=== PATIENT | male | born 1990 | race Caucasian/White ===

== ENCOUNTER 2016-11-27 15:02 | Inpatient (IN) | payer OTHER ==
[2016-11-27 16:58] VITALS: BMI 24.3
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
[2016-11-27] MEDS ORDERED: METHADONE HCL 10 MG TABLET (FOR DETOX USE ONLY) PO ONE ×2 (17:11→23:00)
[2016-11-27] MEDS ORDERED: P-EPHED 60MG/TRIPROLIDI 2.5MG TABLET PO PRN (17:11)
[2016-11-27] MEDS ORDERED: MAGNESIUM CITRATE 300 ML BOTTLE PO PRN (17:11)
[2016-11-27] MEDS ORDERED: guaiFENesin/D-METHORPHAN HB 10 ML UNIT-DOSE CUPS PO PRN (17:11)
[2016-11-27] MEDS ORDERED: LOPERAMIDE HCL 2 MG CAPSULE PO PRN (17:11)
[2016-11-27] MEDS: diazePAM 5 MG TABLET PO PRN ×2 (18:18→22:37)
[2016-11-27] MEDS: MENTHOL/PHENOL 1 EACH UD MM PRN ×2 (18:18→22:39)
[2016-11-27] MEDS: THIAMINE HCL 100 MG TABLET (FP) PO SCH (22:35)
[2016-11-27] MEDS: diphenhydrAMINE HCL 50 MG CAPSULE PO PRN (22:37)
[2016-11-28] MEDS: diazePAM 5 MG TABLET PO PRN ×4 (05:57→22:35)
[2016-11-28] MEDS: MENTHOL/PHENOL 1 EACH UD MM PRN ×3 (05:58→22:40)
[2016-11-28] MEDS ORDERED: METHADONE HCL 10 MG TABLET (FOR DETOX USE ONLY) PO ONE ×2 (10:00→14:00)
[2016-11-28 10:11] LABS: MCH 28.8 pg (25.7-33.7); MEAN CELL VOLUME 84.5 fl (80-96); MEAN PLT VOLUME 10.1 fl (7.5-11.1); PLATELET COUNT 185 K/MM3 (134-434); RDW 13.5 % (11.9-15.9); WHITE BLOOD COUNT 7.1 K/mm3 (4.0-10.0)
[2016-11-28 10:30] LABS: ALBUMIN 3.7 g/dl (3.4-5.0); ALK PHOS 105 U/L (45-117); ANION GAP 9 (8-16); BILIRUBIN,TOTAL 0.5 mg/dL (0.2-1.0); CALCIUM 9.5 mg/dL (8.5-10.1); CO2 29 mmol/L (21-32); CREATININE 0.8 mg/dL (0.7-1.3); GLUCOSE,RANDOM 99 mg/dL (74-106); SGOT/AST 43 U/L (15-37); SGPT/ALT 57 U/L (12-78); TOT PROT 6.8 g/dl (6.4-8.2)
[2016-11-28] MEDS: PRENATAL VITAMINS W/ FOLIC ACID TABLET (FP) PO SCH (10:30)
[2016-11-28 11:15] LABS: SICKLE CELL SCREEN NEGATIVE (NEGATIVE)
--- NOTE | 2016-11-28 14:10 | PN ---
BHS COWS - Scale Resting Pulse: 1= [place] 81-100 Sweatin= Chills/Flushing Restless Observation: 3= Extraneous Movement Pupil Size: 0= Normal to Room Light Bone or Joint Aches: 2= Severe Diffuse Aches Runny Nose/ Eye Tearin= Nasal Congestion GI Upset > 30mins: 2= Nausea/Diarrhea Tremor Observation of Outstretched Hands: 2= Slight Tremor Visible Yawning Observation: 0= None Anxiety or Irritability: 2=Irritable/Anxious Goose Flesh Skin: 0=Smooth Skin COWS Score: 14 BHS Progress Note (SOAP) Subjective: Tremor, anxious, sweating, restlessness Objective: 11/28/16 14:09 Last Vital Signs Temp Pulse Resp BP Pulse Ox 96.8 F L 63 18 117/80 11/28/16 13:28 11/28/16 13:28 11/28/16 13:28 11/28/16 13:28 Laboratory Tests 11/28/16 11/28/16 11/28/16 07:50 07:50 07:50 WBC 7.1 RBC 4.39 Hgb 12.6 Hct 37.1 MCV 84.5 MCHC 34.0 RDW 13.5 Plt Count 185 MPV 10.1 Sickle Cell Screen Negative Sodium 139 Potassium 4.2 Chloride 101 Carbon Dioxide 29 Anion Gap 9 BUN 13 Creatinine 0.8 Creat Clearance w eGFR > 60 Random Glucose 99 Calcium 9.5 Total Bilirubin 0.5 AST 43 H ALT 57 Alkaline Phosphatase 105 Total Protein 6.8 Albumin 3.7 RPR Titer Nonreactive Labs noted Assessment: 11/28/16 14:09 Withdrawal symptoms Plan: Continue detox
[2016-11-28] MEDS: diphenhydrAMINE HCL 50 MG CAPSULE PO PRN (22:36)
[2016-11-28] MEDS: MAG HYDROX/AL HYDROX/SIMETH 30 ML UNIT-DOSE CUP PO PRN (22:37)
[2016-11-28] MEDS: IBUPROFEN 400 MG TABLET (FP) PO PRN (22:37)
[2016-11-28] MEDS: THIAMINE HCL 100 MG TABLET (FP) PO SCH (22:58)
[2016-11-29] MEDS: ACETAMINOPHEN 325 MG TABLET (FP) PO PRN ×3 (01:18→17:15)
[2016-11-29] MEDS: MENTHOL/PHENOL 1 EACH UD MM PRN ×2 (05:39→10:15)
[2016-11-29] MEDS: diazePAM 5 MG TABLET PO PRN ×4 (05:39→22:12)
[2016-11-29] MEDS ORDERED: CYCLOBENZAPRINE HCL 10 MG TABLET (FP) PO ONE (09:12)
[2016-11-29] MEDS ORDERED: ONDANSETRON *ODT* 4 MG TABLET SL PRN (09:13)
[2016-11-29] MEDS ORDERED: ONDANSETRON *ODT* 4 MG TABLET SL ONE (09:13)
[2016-11-29] MEDS ORDERED: METHADONE HCL 5 MG TABLET (FOR DETOX USE ONLY) PO ONE (10:00)
[2016-11-29] MEDS: PRENATAL VITAMINS W/ FOLIC ACID TABLET (FP) PO SCH (10:09)
[2016-11-29] MEDS: cloNIDine HCL 0.1 MG TABLET PO SCH ×2 (10:09→22:13)
--- NOTE | 2016-11-29 10:09 | PN ---
BHS COWS - Scale Resting Pulse: 1= [place] 81-100 Sweatin=Flushed/Facial Moisture Restless Observation: 3= Extraneous Movement Pupil Size: 1= Pupils >than Normal Bone or Joint Aches: 2= Severe Diffuse Aches Runny Nose/ Eye Tearin= Runny Nose/Eyes GI Upset > 30mins: 2= Nausea/Diarrhea Tremor Observation of Outstretched Hands: 2= Slight Tremor Visible Yawning Observation: 1= 1-2x During Session Anxiety or Irritability: 2=Irritable/Anxious Goose Flesh Skin: 0=Smooth Skin COWS Score: 18 BHS Progress Note (SOAP) Subjective: anxiety,tremors,sweating,interrupted sleep,restless Objective: 11/29/16 10:09 Last Vital Signs Temp Pulse Resp BP Pulse Ox 98.6 F 94 H 20 111/73 11/29/16 10:04 11/29/16 10:04 11/29/16 10:04 11/29/16 10:04 Laboratory Tests 11/28/16 11/28/16 11/28/16 07:50 07:50 07:50 WBC 7.1 RBC 4.39 Hgb 12.6 Hct 37.1 MCV 84.5 MCHC 34.0 RDW 13.5 Plt Count 185 MPV 10.1 Sickle Cell Screen Negative Sodium 139 Potassium 4.2 Chloride 101 Carbon Dioxide 29 Anion Gap 9 BUN 13 Creatinine 0.8 Creat Clearance w eGFR > 60 Random Glucose 99 Calcium 9.5 Total Bilirubin 0.5 AST 43 H ALT 57 Alkaline Phosphatase 105 Total Protein 6.8 Albumin 3.7 RPR Titer Nonreactive labs noted Assessment: 11/29/16 10:09 withdrawal sx. Plan: continue detox
[2016-11-29] MEDS: CYCLOBENZAPRINE HCL 10 MG TABLET (FP) PO SCH ×2 (13:37→22:12)
[2016-11-29] MEDS: MAG HYDROX/AL HYDROX/SIMETH 30 ML UNIT-DOSE CUP PO PRN (13:38)
--- NOTE | 2016-11-29 16:22 | EKG ---
Test Reason : Blood Pressure : / mmHG Vent. Rate : 088 BPM Atrial Rate : 088 BPM P-R Int : 174 ms QRS Dur : 096 ms QT Int : 338 ms P-R-T Axes : 059 063 036 degrees QTc Int : 408 ms NORMAL SINUS RHYTHM POSSIBLE LEFT ATRIAL ENLARGEMENT SEPTAL INFARCT , AGE UNDETERMINED ABNORMAL ECG NO PREVIOUS ECGS AVAILABLE Confirmed by OMAR BANGURA MD ([id number]) on 11/29/2016 4:22:24 PM Referred By: Confirmed By:OMAR BANGURA MD
[2016-11-29] MEDS: MAGNESIUM HYDROX 2400MG/30ML ORAL SUSPENSION 30 ML CUP PO PRN (17:20)
[2016-11-29] MEDS: THIAMINE HCL 100 MG TABLET (FP) PO SCH (22:13)
[2016-11-29] MEDS: ZOLPIDEM TARTRATE 10 MG TABLET (PARK CARE ONLY) PO PRN (22:13)
[2016-11-29 22:47] LABS: URINE APPEARANCE CLEAR; URINE BILIRUBIN NEGATIVE (NEGATIVE); URINE BLOOD NEGATIVE (NEGATIVE); URINE COLOR YELLOW; URINE GLUCOSE (UA) NEGATIVE (NEGATIVE); URINE KETONE NEGATIVE (NEGATIVE); URINE LEUK ESTERASE NEGATIVE (NEGATIVE); URINE NITRITE NEGATIVE (NEGATIVE); URINE PROTEIN NEGATIVE (NEGATIVE); URINE UROBILINOGEN NEGATIVE E.U./dl (0.2-1.0)
[2016-11-30] MEDS: diazePAM 5 MG TABLET PO PRN ×3 (02:03→15:27)
[2016-11-30] MEDS: CYCLOBENZAPRINE HCL 10 MG TABLET (FP) PO SCH ×3 (05:46→22:14)
[2016-11-30] MEDS: MENTHOL/PHENOL 1 EACH UD MM PRN ×3 (05:48→15:26)
[2016-11-30] MEDS: ACETAMINOPHEN 325 MG TABLET (FP) PO PRN ×2 (06:18→15:28)
[2016-11-30] MEDS ORDERED: METHADONE HCL 5 MG TABLET (FOR DETOX USE ONLY) PO ONE (10:00)
[2016-11-30] MEDS: cloNIDine HCL 0.1 MG TABLET PO SCH ×2 (10:13→22:14)
[2016-11-30] MEDS: PRENATAL VITAMINS W/ FOLIC ACID TABLET (FP) PO SCH (10:13)
--- NOTE | 2016-11-30 10:54 | PN ---
S Progress Note (SOAP) Subjective: ANXIETY,IRRITABILITY,ASWEATS/CHILLS,DIARRHEA, MUSCLE CRAMPS. Objective: 11/30/16 10:54 Vital Signs Temperature 96.0 F L 11/30/16 09:40 Pulse Rate 79 11/30/16 09:40 Respiratory Rate 19 11/30/16 09:40 Blood Pressure 98/62 11/30/16 09:40 O2 Sat by Pulse Oximetry (%) Laboratory Last Values WBC 7.1 K/mm3 (4.0-10.0) 11/28/16 07:50 RBC 4.39 M/mm3 (4.00-5.60) 11/28/16 07:50 Hgb 12.6 GM/dL (11.7-16.9) 11/28/16 07:50 Hct 37.1 % (35.4-49) 11/28/16 07:50 MCV 84.5 fl (80-96) 11/28/16 07:50 MCHC 34.0 g/dl (32.0-35.9) 11/28/16 07:50 RDW 13.5 % (11.9-15.9) 11/28/16 07:50 Plt Count 185 K/MM3 (134-434) 11/28/16 07:50 MPV 10.1 fl (7.5-11.1) 11/28/16 07:50 Sickle Cell Screen Negative (NEGATIVE) 11/28/16 07:50 Sodium 139 mmol/L (136-145) 11/28/16 07:50 Potassium 4.2 mmol/L (3.5-5.1) 11/28/16 07:50 Chloride 101 mmol/L (98-107) 11/28/16 07:50 Carbon Dioxide 29 mmol/L (21-32) 11/28/16 07:50 Anion Gap 9 (8-16) 11/28/16 07:50 BUN 13 mg/dL (7-18) 11/28/16 07:50 Creatinine 0.8 mg/dL (0.7-1.3) 11/28/16 07:50 Creat Clearance w eGFR > 60 (>60) 11/28/16 07:50 Random Glucose 99 mg/dL (74-106) 11/28/16 07:50 Calcium 9.5 mg/dL (8.5-10.1) 11/28/16 07:50 Total Bilirubin 0.5 mg/dL (0.2-1.0) 11/28/16 07:50 AST 43 U/L (15-37) H 11/28/16 07:50 ALT 57 U/L (12-78) 11/28/16 07:50 Alkaline Phosphatase 105 U/L (45-117) 11/28/16 07:50 Total Protein 6.8 g/dl (6.4-8.2) 11/28/16 07:50 Albumin 3.7 g/dl (3.4-5.0) 11/28/16 07:50 Urine Color Yellow 11/29/16 18:30 Urine Appearance Clear 11/29/16 18:30 Urine pH 5.0 (5.0-8.0) 11/29/16 18:30 Ur Specific [place] 1.020 (1.001-1.035) 11/29/16 18:30 Urine Protein Negative (NEGATIVE) 11/29/16 18:30 Urine Glucose (UA) Negative (NEGATIVE) 11/29/16 18:30 Urine Ketones Negative (NEGATIVE) 11/29/16 18:30 Urine Blood Negative (NEGATIVE) 11/29/16 18:30 Urine Nitrite Negative (NEGATIVE) 11/29/16 18:30 Urine Bilirubin Negative (NEGATIVE) 11/29/16 18:30 Urine Urobilinogen Negative E.U./dl (0.2-1.0) 11/29/16 18:30 Ur Leukocyte Esterase Negative (NEGATIVE) 11/29/16 18:30 RPR Titer Nonreactive (NONREACTIVE) 11/28/16 07:50 Assessment: 11/30/16 10:54 WITHDRAWAL SX Plan: CONTINUE DETOX INCREASE PO FLUIDS.
[2016-11-30] MEDS: hydrOXYzine PAMOATE 50 MG CAPSULE (FP) PO PRN (17:38)
[2016-11-30] MEDS: IBUPROFEN 400 MG TABLET (FP) PO PRN (17:39)
[2016-11-30] MEDS: ZOLPIDEM TARTRATE 10 MG TABLET (PARK CARE ONLY) PO PRN (22:15)
[2016-11-30] MEDS: MAGNESIUM HYDROX 2400MG/30ML ORAL SUSPENSION 30 ML CUP PO PRN (22:16)
[2016-11-30] MEDS: THIAMINE HCL 100 MG TABLET (FP) PO SCH (22:36)
[2016-12-01] MEDS: MENTHOL/PHENOL 1 EACH UD MM PRN (00:36)
[2016-12-01] MEDS: hydrOXYzine PAMOATE 50 MG CAPSULE (FP) PO PRN ×2 (01:43→06:21)
[2016-12-01] MEDS: CYCLOBENZAPRINE HCL 10 MG TABLET (FP) PO SCH ×4 (06:12→22:21)
[2016-12-01] MEDS ORDERED: METHADONE HCL 10 MG TABLET (FOR DETOX USE ONLY) PO ONE (10:00)
[2016-12-01] MEDS: PRENATAL VITAMINS W/ FOLIC ACID TABLET (FP) PO SCH (10:22)
[2016-12-01] MEDS: cloNIDine HCL 0.1 MG TABLET PO SCH ×2 (10:22→22:21)
--- NOTE | 2016-12-01 11:34 | PN ---
BHS Progress Note (SOAP) Subjective: ANXIETY,NAUSEA,VOMITING,SWEATS/CHILLS Objective: 12/01/16 11:34 Vital Signs Temperature 95.8 F L 12/01/16 09:58 Pulse Rate 108 H 12/01/16 09:58 Respiratory Rate 2 L 12/01/16 09:58 Blood Pressure 122/75 12/01/16 09:58 O2 Sat by Pulse Oximetry (%) Assessment: 12/01/16 11:34 WITHDRAWAL SX Plan: CONTINUE DETOX
[2016-12-01] MEDS: ZOLPIDEM TARTRATE 10 MG TABLET (PARK CARE ONLY) PO PRN (22:20)
[2016-12-01] MEDS: THIAMINE HCL 100 MG TABLET (FP) PO SCH (22:21)
[2016-12-02] MEDS: CYCLOBENZAPRINE HCL 10 MG TABLET (FP) PO SCH (05:57)
[2016-12-02] MEDS ORDERED: METHADONE HCL 5 MG TABLET (FOR DETOX USE ONLY) PO ONE (06:00)
[2016-12-02 06:28] VITALS: BP 122/77; PULSE 102; TEMP 97.5
--- NOTE | 2016-12-02 12:29 | DS ---
[facility] Detox Discharge Summary Admission Date: 11/27/16 Discharge Date: 12/02/16 - History Present History: Opioid Dependence Additional Comments: DETOX COMPLETED.ALERT O X 3. NAD. Pertinent Past History: UNREMARKABLE - Physical Exam Results Vital Signs: Vital Signs Temperature 97.5 F L 12/02/16 06:28 Pulse Rate 102 H 12/02/16 06:28 Respiratory Rate 18 12/02/16 06:28 Blood Pressure 122/77 12/02/16 06:28 O2 Sat by Pulse Oximetry (%) Pertinent Admission Physical Exam Findings: WITHDRAWAL SX - Treatment Hospital Course: Detox Protocol Followed, Detoxed Safely, Responded well, Discharged Condition Good - Medication Discharge Medications: Ambulatory Orders NK [No Known Home Medication] 11/27/16 - Diagnosis (1) Opioid dependence with withdrawal Status: Acute - AMA Did Patient Leave Against Medical Advice: No
== END 2016-12-02 09:31 | disposition home or self-care (01) | DRG 773 ==
LOC: YASAS 15:02 → Y3N 17:18
PROVIDERS: ADMIT Internal Medicine; ATTEND Internal Medicine
PROC: HZ2ZZZZ Detoxification Services for Substance Abuse Treatment (ICD-10-PCS; principal; 2016-12-02)
DX: F11.23 Opioid dependence with withdrawal (principal)
CPT/HCPCS: 36415; 80053; 81003; 85027; 85660; 86593; 93005; 93010

== ENCOUNTER 2017-06-19 20:02 | Inpatient (IN) | payer OTHER ==
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
[2017-06-19 20:45] VITALS: BMI 21.8
[2017-06-19] MEDS ORDERED: METHADONE HCL 10 MG TABLET (FOR DETOX USE ONLY) PO ONE ×2 (20:50→23:00)
[2017-06-19] MEDS ORDERED: MAGNESIUM HYDROX 2400MG/30ML ORAL SUSPENSION 30 ML CUP PO PRN (20:50)
[2017-06-19] MEDS ORDERED: MENTHOL/PHENOL 1 EACH UD MM PRN (20:50)
[2017-06-19] MEDS ORDERED: diphenhydrAMINE HCL 50 MG CAPSULE PO PRN (20:50)
[2017-06-19] MEDS ORDERED: MAGNESIUM CITRATE 300 ML BOTTLE PO PRN (20:50)
[2017-06-19] MEDS ORDERED: P-EPHED 60MG/TRIPROLIDI 2.5MG TABLET PO PRN (20:50)
[2017-06-19] MEDS ORDERED: LOPERAMIDE HCL 2 MG CAPSULE PO PRN (20:50)
[2017-06-19] MEDS ORDERED: MAG HYDROX/AL HYDROX/SIMETH 30 ML UNIT-DOSE CUP PO PRN (20:50)
[2017-06-19] MEDS ORDERED: ACETAMINOPHEN 325 MG TABLET (FP) PO PRN (20:50)
[2017-06-19] MEDS ORDERED: hydrOXYzine PAMOATE 25 MG CAPSULE (FP) PO PRN (20:50)
[2017-06-19] MEDS ORDERED: guaiFENesin/D-METHORPHAN HB 10 ML UNIT-DOSE CUPS PO PRN (20:50)
[2017-06-19] MEDS ORDERED: IBUPROFEN 400 MG TABLET (FP) PO PRN (20:50)
[2017-06-19] MEDS: diazePAM 5 MG TABLET PO PRN (21:57)
[2017-06-19] MEDS: THIAMINE HCL 100 MG TABLET (FP) PO SCH (21:58)
[2017-06-19] MEDS: cloNIDine HCL 0.1 MG TABLET PO SCH (22:03)
[2017-06-20] MEDS: CYCLOBENZAPRINE HCL 10 MG TABLET (FP) PO PRN ×3 (06:05→22:18)
[2017-06-20] MEDS: diazePAM 5 MG TABLET PO PRN ×4 (06:05→20:58)
[2017-06-20 09:36] LABS: MCH 29.8 pg (25.7-33.7); MCHC 33.1 g/dl (32.0-35.9); MEAN CELL VOLUME 89.9 fl (80-96); MEAN PLT VOLUME 10.7 fl (7.5-11.1); PLATELET COUNT 222 K/MM3 (134-434); RDW 13.7 % (11.9-15.9); WHITE BLOOD COUNT 6.1 K/mm3 (4.0-10.0)
--- NOTE | 2017-06-20 09:42 | CONSULT ---
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 Substance Abuse History: Reports heroin since 26 ,10 bags daily IV,cocaine since 26 yo,$150-200,Marijuana since 18 yo,$60 daily. Medical History: Significant for weight loss. Psychiatric History: No psychiatric history,but reports anxiety,sleeping difficulties mostly while on withdrawal. Physical/Sexual Abuse/Trauma History: denies Mental Status Exam - Mental Status Exam Alert and Oriented to: Time, Place, Person Cognitive Function: Grossly Intact Patient Appearance: Unkempt Mood: Anxious Affect: Mood Congruent, Labile Patient Behavior: Cooperative Speech Pattern: Clear Thought Process: Goal Oriented Thought Disorder: Not Present Hallucinations: Denies Suicidal Ideation: Denies Homicidal Ideation: Denies Insight/Judgement: Fair Sleep: Fair Appetite: Fair Muscle strength/Tone: Normal Gait/Station: Normal Psychiatric Findings - Problem List ([place] 1, 2,3) (1) Cannabis dependence Current Visit: Yes Status: Chronic (2) Weight loss Current Visit: Yes Status: Chronic (3) Opioid dependence Current Visit: Yes Status: Chronic (4) Cocaine dependence Current Visit: Yes Status: Chronic (5) Substance induced mood disorder Current Visit: Yes Status: Chronic - Initial Treatment Plan Initial Treatment Plan: Ambien 10 mg po hs prn for insomnia,Vistaril 50 mg po q 6 hrs for anxiety. Will monitor progress.
[2017-06-20] MEDS ORDERED: METHADONE HCL 10 MG TABLET (FOR DETOX USE ONLY) PO ONE (10:00)
[2017-06-20] MEDS: PRENATAL VITAMINS W/ FOLIC ACID TABLET (FP) PO SCH (10:14)
[2017-06-20] MEDS: cloNIDine HCL 0.1 MG TABLET PO SCH ×2 (10:14→22:18)
[2017-06-20 10:15] LABS: ALBUMIN 3.5 g/dl (3.4-5.0); ALK PHOS 67 U/L (45-117); ANION GAP 9 (8-16); BILIRUBIN,TOTAL 0.5 mg/dL (0.2-1.0); CALCIUM 9.2 mg/dL (8.5-10.1); CO2 31 mmol/L (21-32); CREATININE 1.4 mg/dL (0.7-1.3); GLUCOSE,RANDOM 93 mg/dL (74-106); SGOT/AST 6 U/L (15-37); SGPT/ALT 13 U/L (12-78); TOT PROT 6.8 g/dl (6.4-8.2)
[2017-06-20 11:47] LABS: HIV 1 & 2 AB NEGATIVE; HIV 1 AGp24 NEGATIVE
--- NOTE | 2017-06-20 17:12 | PN ---
BHS COWS - Scale Resting Pulse: 0= [place] 80 or Below Sweatin=Flushed/Facial Moisture Restless Observation: 1= Difficult to Sit Still Pupil Size: 0= Normal to Room Light Bone or Joint Aches: 2= Severe Diffuse Aches Runny Nose/ Eye Tearin= Nasal Congestion GI Upset > 30mins: 1= Stomach Cramp Tremor Observation of Outstretched Hands: 1= Tremor [place], Not Seen Yawning Observation: 1= 1-2x During Session Anxiety or Irritability: 2=Irritable/Anxious Goose Flesh Skin: 3=Piloerection COWS Score: 14 BHS Progress Note (SOAP) Subjective: Interrupted sleep, Body Aches, Fatigue, Sweating. Objective: PT. A & O X 3. NO ACUTE DISTRESS. 06/20/17 17:09 Vital Signs Temperature 97.7 F 06/20/17 09:40 Pulse Rate 74 06/20/17 13:19 Respiratory Rate 18 06/20/17 13:19 Blood Pressure 101/71 06/20/17 13:19 O2 Sat by Pulse Oximetry (%) Laboratory Tests 06/20/17 06/20/17 06/20/17 05:30 05:30 05:30 WBC 6.1 RBC 4.14 Hgb 12.3 Hct 37.2 MCV 89.9 MCH 29.8 MCHC 33.1 RDW 13.7 Plt Count 222 MPV 10.7 Sodium 143 Potassium 4.7 Chloride 103 Carbon Dioxide 31 Anion Gap 9 BUN 18 D Creatinine 1.4 H D Creat Clearance w eGFR > 60 Random Glucose 93 Calcium 9.2 Total Bilirubin 0.5 AST 6 L D ALT 13 D Alkaline Phosphatase 67 D Total Protein 6.8 Albumin 3.5 RPR Titer Nonreactive HIV 1&2 Antibody Screen HIV P24 Antigen 06/20/17 05:30 WBC RBC Hgb Hct MCV MCH MCHC RDW Plt Count MPV Sodium Potassium Chloride Carbon Dioxide Anion Gap BUN Creatinine Creat Clearance w eGFR Random Glucose Calcium Total Bilirubin AST ALT Alkaline Phosphatase Total Protein Albumin RPR Titer HIV 1&2 Antibody Screen Negative HIV P24 Antigen Negative LABS NOTED. UA RESULTS PENDING. 06/20/17 17:11 Assessment: 06/20/17 17:10 WITHDRAWAL SYMPTOMS. Plan: CONTINUE DETOX. INCREASE PO FLUID INTAKE.
[2017-06-20 18:40] LABS: URINE APPEARANCE SLCLOUDY; URINE BILIRUBIN NEGATIVE (NEGATIVE); URINE BLOOD NEGATIVE (NEGATIVE); URINE COLOR YELLOW; URINE GLUCOSE (UA) NEGATIVE (NEGATIVE); URINE KETONE NEGATIVE (NEGATIVE); URINE LEUK ESTERASE NEGATIVE (NEGATIVE); URINE NITRITE NEGATIVE (NEGATIVE); URINE PROTEIN NEGATIVE (NEGATIVE); URINE UROBILINOGEN NEGATIVE mg/dL (0.2-1.0)
--- NOTE | 2017-06-20 22:16 | EKG ---
Test Reason : Blood Pressure : / mmHG Vent. Rate : 054 BPM Atrial Rate : 054 BPM P-R Int : 140 ms QRS Dur : 080 ms QT Int : 376 ms P-R-T Axes : 064 073 038 degrees QTc Int : 356 ms SINUS BRADYCARDIA WITH SINUS ARRHYTHMIA OTHERWISE NORMAL ECG WHEN COMPARED WITH ECG OF 27-NOV-2016 18:12, VENT. RATE HAS DECREASED BY 34 BPM T WAVE VARIATION Confirmed by OMAR BANGURA MD ([id number]) on 06/20/2017 10:16:31 PM Referred By: Confirmed By:OMAR BANGURA MD
[2017-06-20] MEDS: ZOLPIDEM TARTRATE 10 MG TABLET (PARK CARE ONLY) PO PRN (22:18)
[2017-06-20] MEDS: THIAMINE HCL 100 MG TABLET (FP) PO SCH (22:18)
[2017-06-21] MEDS: diazePAM 5 MG TABLET PO PRN ×4 (05:53→22:13)
[2017-06-21] MEDS: CYCLOBENZAPRINE HCL 10 MG TABLET (FP) PO PRN ×2 (05:54→10:23)
[2017-06-21] MEDS ORDERED: METHADONE HCL 5 MG TABLET (FOR DETOX USE ONLY) PO ONE (10:00)
[2017-06-21] MEDS: cloNIDine HCL 0.1 MG TABLET PO SCH ×2 (10:21→22:14)
[2017-06-21] MEDS: PRENATAL VITAMINS W/ FOLIC ACID TABLET (FP) PO SCH (10:21)
--- NOTE | 2017-06-21 11:38 | PN ---
BHS COWS - Scale Resting Pulse: 1= [place] 81-100 Sweatin= Chills/Flushing Restless Observation: 1= Difficult to Sit Still Pupil Size: 0= Normal to Room Light Bone or Joint Aches: 2= Severe Diffuse Aches Runny Nose/ Eye Tearin= Runny Nose/Eyes GI Upset > 30mins: 1= Stomach Cramp Tremor Observation of Outstretched Hands: 1= Tremor [place], Not Seen Yawning Observation: 2= >3x During Session Anxiety or Irritability: 2=Irritable/Anxious Goose Flesh Skin: 0=Smooth Skin COWS Score: 13 BHS Progress Note (SOAP) Subjective: Interrupted sleep, Body aches, Fatigue, Stomach Cramping. Objective: PT. A & O X 2 (DISORIENTED ABOUT DAY / DATE). PT. OBSERVED AMBULATING ON UNIT. NO ACUTE DISTRESS. 06/21/17 11:39 Vital Signs Temperature 97.5 F L 06/21/17 09:10 Pulse Rate 81 06/21/17 09:10 Respiratory Rate 18 06/21/17 09:10 Blood Pressure 104/65 06/21/17 09:10 O2 Sat by Pulse Oximetry (%) Laboratory Tests 06/20/17 06/20/17 06/20/17 05:30 05:30 05:30 WBC 6.1 RBC 4.14 Hgb 12.3 Hct 37.2 MCV 89.9 MCH 29.8 MCHC 33.1 RDW 13.7 Plt Count 222 MPV 10.7 Sodium 143 Potassium 4.7 Chloride 103 Carbon Dioxide 31 Anion Gap 9 BUN 18 D Creatinine 1.4 H D Creat Clearance w eGFR > 60 Random Glucose 93 Calcium 9.2 Total Bilirubin 0.5 AST 6 L D ALT 13 D Alkaline Phosphatase 67 D Total Protein 6.8 Albumin 3.5 Urine Color Urine Appearance Urine pH Ur Specific [place] Urine Protein Urine Glucose (UA) Urine Ketones Urine Blood Urine Nitrite Urine Bilirubin Urine Urobilinogen Ur Leukocyte Esterase RPR Titer Nonreactive HIV 1&2 Antibody Screen HIV P24 Antigen 06/20/17 06/20/17 05:30 13:19 WBC RBC Hgb Hct MCV MCH MCHC RDW Plt Count MPV Sodium Potassium Chloride Carbon Dioxide Anion Gap BUN Creatinine Creat Clearance w eGFR Random Glucose Calcium Total Bilirubin AST ALT Alkaline Phosphatase Total Protein Albumin Urine Color Yellow Urine Appearance Slcloudy Urine pH 6.0 Ur Specific [place] 1.020 Urine Protein Negative Urine Glucose (UA) Negative Urine Ketones Negative Urine Blood Negative Urine Nitrite Negative Urine Bilirubin Negative Urine Urobilinogen Negative Ur Leukocyte Esterase Negative RPR Titer HIV 1&2 Antibody Screen Negative HIV P24 Antigen Negative LABS NOTED. Assessment: 06/21/17 11:40 WITHDRAWAL SYMPTOMS. Plan: CONTINUE DETOX. INCREASE DAILY PO FLUID INTAKE.
[2017-06-21] MEDS: THIAMINE HCL 100 MG TABLET (FP) PO SCH (22:14)
[2017-06-21] MEDS: ZOLPIDEM TARTRATE 10 MG TABLET (PARK CARE ONLY) PO PRN (22:14)
[2017-06-22] MEDS ORDERED: METHADONE HCL 5 MG TABLET (FOR DETOX USE ONLY) PO ONE (10:00)
[2017-06-22] MEDS: diazePAM 5 MG TABLET PO PRN ×2 (10:22→17:28)
[2017-06-22] MEDS: PRENATAL VITAMINS W/ FOLIC ACID TABLET (FP) PO SCH (10:22)
[2017-06-22] MEDS: cloNIDine HCL 0.1 MG TABLET PO SCH ×2 (10:22→22:29)
[2017-06-22] MEDS: CYCLOBENZAPRINE HCL 10 MG TABLET (FP) PO PRN ×3 (10:23→22:32)
--- NOTE | 2017-06-22 11:52 | PN ---
BHS COWS - Scale Resting Pulse: 1= [place] 81-100 Sweatin= Chills/Flushing Restless Observation: 3= Extraneous Movement Pupil Size: 0= Normal to Room Light Bone or Joint Aches: 4=Acute Joint/Muscle Pain Runny Nose/ Eye Tearin= Nasal Congestion GI Upset > 30mins: 1= Stomach Cramp Tremor Observation of Outstretched Hands: 2= Slight Tremor Visible Yawning Observation: 1= 1-2x During Session Anxiety or Irritability: 1=Feels Anxious/Irritable Goose Flesh Skin: 0=Smooth Skin COWS Score: 15 BHS Progress Note (SOAP) Subjective: ANXIETY,SWEATS,FATIGUE, INTERMITTENT SLEEP. Objective: 06/22/17 11:51 Vital Signs Temperature 97.2 F L 06/22/17 09:44 Pulse Rate 91 H 06/22/17 09:44 Respiratory Rate 18 06/22/17 09:44 Blood Pressure 106/67 06/22/17 09:44 O2 Sat by Pulse Oximetry (%) Laboratory Last Values WBC 6.1 K/mm3 (4.0-10.0) 06/20/17 05:30 RBC 4.14 M/mm3 (4.00-5.60) 06/20/17 05:30 Hgb 12.3 GM/dL (11.7-16.9) 06/20/17 05:30 Hct 37.2 % (35.4-49) 06/20/17 05:30 MCV 89.9 fl (80-96) 06/20/17 05:30 MCH 29.8 pg (25.7-33.7) 06/20/17 05:30 MCHC 33.1 g/dl (32.0-35.9) 06/20/17 05:30 RDW 13.7 % (11.9-15.9) 06/20/17 05:30 Plt Count 222 K/MM3 (134-434) 06/20/17 05:30 MPV 10.7 fl (7.5-11.1) 06/20/17 05:30 Sodium 143 mmol/L (136-145) 06/20/17 05:30 Potassium 4.7 mmol/L (3.5-5.1) 06/20/17 05:30 Chloride 103 mmol/L (98-107) 06/20/17 05:30 Carbon Dioxide 31 mmol/L (21-32) 06/20/17 05:30 Anion Gap 9 (8-16) 06/20/17 05:30 BUN 18 mg/dL (7-18) D 06/20/17 05:30 Creatinine 1.4 mg/dL (0.7-1.3) H D 06/20/17 05:30 Creat Clearance w eGFR > 60 (>60) 06/20/17 05:30 Random Glucose 93 mg/dL (74-106) 06/20/17 05:30 Calcium 9.2 mg/dL (8.5-10.1) 06/20/17 05:30 Total Bilirubin 0.5 mg/dL (0.2-1.0) 06/20/17 05:30 AST 6 U/L (15-37) L D 06/20/17 05:30 ALT 13 U/L (12-78) D 06/20/17 05:30 Alkaline Phosphatase 67 U/L (45-117) D 06/20/17 05:30 Total Protein 6.8 g/dl (6.4-8.2) 06/20/17 05:30 Albumin 3.5 g/dl (3.4-5.0) 06/20/17 05:30 Urine Color Yellow 06/20/17 13:19 Urine Appearance Slcloudy 06/20/17 13:19 Urine pH 6.0 (5.0-8.0) 06/20/17 13:19 Ur Specific [place] 1.020 (1.005-1.025) 06/20/17 13:19 Urine Protein Negative (NEGATIVE) 06/20/17 13:19 Urine Glucose (UA) Negative (NEGATIVE) 06/20/17 13:19 Urine Ketones Negative (NEGATIVE) 06/20/17 13:19 Urine Blood Negative (NEGATIVE) 06/20/17 13:19 Urine Nitrite Negative (NEGATIVE) 06/20/17 13:19 Urine Bilirubin Negative (NEGATIVE) 06/20/17 13:19 Urine Urobilinogen Negative mg/dL (0.2-1.0) 06/20/17 13:19 Ur Leukocyte Esterase Negative (NEGATIVE) 06/20/17 13:19 RPR Titer Nonreactive (NONREACTIVE) 06/20/17 05:30 HIV 1&2 Antibody Screen Negative 06/20/17 05:30 HIV P24 Antigen Negative 06/20/17 05:30 Assessment: 06/22/17 11:51 WITHDRAWAL SX Plan: CONTINUE DETOX
[2017-06-22] MEDS: THIAMINE HCL 100 MG TABLET (FP) PO SCH (22:29)
[2017-06-22] MEDS: ZOLPIDEM TARTRATE 10 MG TABLET (PARK CARE ONLY) PO PRN (22:29)
[2017-06-23] MEDS ORDERED: METHADONE HCL 10 MG TABLET (FOR DETOX USE ONLY) PO ONE (10:00)
[2017-06-23] MEDS: PRENATAL VITAMINS W/ FOLIC ACID TABLET (FP) PO SCH (10:23)
[2017-06-23] MEDS: cloNIDine HCL 0.1 MG TABLET PO SCH ×3 (10:24→23:59)
--- NOTE | 2017-06-23 12:26 | PN ---
BHS Progress Note (SOAP) Subjective: Tremors, Chills, Sweating, H/A, Interrupted Sleep, Body Aches. Objective: PT. A & O X 2 (DISORIENTED ABOUT DAY / DATE). PT. OBSERVED AMBULATING ON UNIT. NO ACUTE DISTRESS. 06/23/17 12:24 Vital Signs Temperature 98.2 F 06/23/17 09:46 Pulse Rate 100 H 06/23/17 09:46 Respiratory Rate 18 06/23/17 09:46 Blood Pressure 110/69 06/23/17 09:46 O2 Sat by Pulse Oximetry (%) Laboratory Tests 06/20/17 06/20/17 06/20/17 05:30 05:30 05:30 WBC 6.1 RBC 4.14 Hgb 12.3 Hct 37.2 MCV 89.9 MCH 29.8 MCHC 33.1 RDW 13.7 Plt Count 222 MPV 10.7 Sodium 143 Potassium 4.7 Chloride 103 Carbon Dioxide 31 Anion Gap 9 BUN 18 D Creatinine 1.4 H D Creat Clearance w eGFR > 60 Random Glucose 93 Calcium 9.2 Total Bilirubin 0.5 AST 6 L D ALT 13 D Alkaline Phosphatase 67 D Total Protein 6.8 Albumin 3.5 Urine Color Urine Appearance Urine pH Ur Specific [place] Urine Protein Urine Glucose (UA) Urine Ketones Urine Blood Urine Nitrite Urine Bilirubin Urine Urobilinogen Ur Leukocyte Esterase RPR Titer Nonreactive HIV 1&2 Antibody Screen HIV P24 Antigen 06/20/17 06/20/17 05:30 13:19 WBC RBC Hgb Hct MCV MCH MCHC RDW Plt Count MPV Sodium Potassium Chloride Carbon Dioxide Anion Gap BUN Creatinine Creat Clearance w eGFR Random Glucose Calcium Total Bilirubin AST ALT Alkaline Phosphatase Total Protein Albumin Urine Color Yellow Urine Appearance Slcloudy Urine pH 6.0 Ur Specific [place] 1.020 Urine Protein Negative Urine Glucose (UA) Negative Urine Ketones Negative Urine Blood Negative Urine Nitrite Negative Urine Bilirubin Negative Urine Urobilinogen Negative Ur Leukocyte Esterase Negative RPR Titer HIV 1&2 Antibody Screen Negative HIV P24 Antigen Negative LABS NOTED. Assessment: 06/23/17 12:25 WITHDRAWAL SYMPTOMS. Plan: CONTINUE DETOX. INCREASE PO FLUID INTAKE.
[2017-06-23 22:23] VITALS: BP 111/70; PULSE 81; TEMP 96.4
[2017-06-23] MEDS: THIAMINE HCL 100 MG TABLET (FP) PO SCH (23:34)
[2017-06-24] MEDS: THIAMINE HCL 100 MG TABLET (FP) PO SCH
[2017-06-24] MEDS ORDERED: METHADONE HCL 5 MG TABLET (FOR DETOX USE ONLY) PO ONE ×2 (06:00→09:00)
[2017-06-24] MEDS: CYCLOBENZAPRINE HCL 10 MG TABLET (FP) PO PRN (09:21)
[2017-06-24] MEDS: cloNIDine HCL 0.1 MG TABLET PO SCH (09:24)
--- NOTE | 2017-06-24 16:48 | DS ---
[facility] Detox Discharge Summary Admission Date: 06/19/17 Discharge Date: 06/24/17 - History Present History: Cannabis Dependence, Cocaine Dependence, Opioid Dependence Additional Comments: PATIENT GOING TO [facility] ([place] FOR FOLLOW-UP AFTERCARE. PATIENT WAS DISCHARGED FROM UNIT IN STABLE MEDICAL CONDITION. Pertinent Past History: Anxiety, Depression, Insomnia. - Physical Exam Results Vital Signs: Vital Signs Temperature 96.4 F L 06/23/17 22:22 Pulse Rate 81 06/23/17 22:22 Respiratory Rate 18 06/24/17 03:30 Blood Pressure 111/70 06/23/17 22:22 O2 Sat by Pulse Oximetry (%) Pertinent Admission Physical Exam Findings: WITHDRAWAL SYMPTOMS. Laboratory Tests 06/20/17 06/20/17 06/20/17 05:30 05:30 05:30 WBC 6.1 RBC 4.14 Hgb 12.3 Hct 37.2 MCV 89.9 MCH 29.8 MCHC 33.1 RDW 13.7 Plt Count 222 MPV 10.7 Sodium 143 Potassium 4.7 Chloride 103 Carbon Dioxide 31 Anion Gap 9 BUN 18 D Creatinine 1.4 H D Creat Clearance w eGFR > 60 Random Glucose 93 Calcium 9.2 Total Bilirubin 0.5 AST 6 L D ALT 13 D Alkaline Phosphatase 67 D Total Protein 6.8 Albumin 3.5 Urine Color Urine Appearance Urine pH Ur Specific [place] Urine Protein Urine Glucose (UA) Urine Ketones Urine Blood Urine Nitrite Urine Bilirubin Urine Urobilinogen Ur Leukocyte Esterase RPR Titer Nonreactive HIV 1&2 Antibody Screen HIV P24 Antigen 06/20/17 06/20/17 05:30 13:19 WBC RBC Hgb Hct MCV MCH MCHC RDW Plt Count MPV Sodium Potassium Chloride Carbon Dioxide Anion Gap BUN Creatinine Creat Clearance w eGFR Random Glucose Calcium Total Bilirubin AST ALT Alkaline Phosphatase Total Protein Albumin Urine Color Yellow Urine Appearance Slcloudy Urine pH 6.0 Ur Specific [place] 1.020 Urine Protein Negative Urine Glucose (UA) Negative Urine Ketones Negative Urine Blood Negative Urine Nitrite Negative Urine Bilirubin Negative Urine Urobilinogen Negative Ur Leukocyte Esterase Negative RPR Titer HIV 1&2 Antibody Screen Negative HIV P24 Antigen Negative LABS NOTED. - Treatment Hospital Course: Detox Protocol Followed, Detoxed Safely, Responded well, Discharged Condition Good, Rehab Referral Accepted Patient has Accepted a Rehab Referral to: [facility] ([place], [place] ) - Medication Discharge Medications: Ambulatory Orders NK [No Known Home Medication] 11/27/16 - Diagnosis (1) Anxiety and depression Status: Acute (2) Cocaine dependence with withdrawal Status: Acute (3) Opioid dependence with withdrawal Status: Acute (4) Cannabis dependence Status: Chronic (5) Substance induced mood disorder Status: Chronic (6) Weight loss Status: Chronic - AMA Did Patient Leave Against Medical Advice: No
== END 2017-06-24 09:32 | disposition home or self-care (01) | DRG 773 ==
LOC: YASAS 20:02 → Y3N 20:52
PROVIDERS: ADMIT Internal Medicine Addiction Medicine; ATTEND Internal Medicine Addiction Medicine
PROC: HZ2ZZZZ Detoxification Services for Substance Abuse Treatment (ICD-10-PCS; principal; 2017-06-19)
DX: F11.23 Opioid dependence with withdrawal (principal); F14.20 Cocaine dependence, uncomplicated; F12.20 Cannabis dependence, uncomplicated; F19.24 Other psychoactive substance dependence with psychoactive substance-induced mood disorder; F41.8 Other specified anxiety disorders; Z87.898 Personal history of other specified conditions
CPT/HCPCS: 36415; 80053; 81003; 85027; 86593; 87389; 93005; 93010

== ENCOUNTER 2017-06-25 13:44 | Observation (INO) | payer OTHER ==
[2017-06-25] MEDS ORDERED: SODIUM CHLORIDE 1,000 ML IV STA ×3 (14:16→18:17)
--- NOTE | 2017-06-25 14:16 | PDOC ---
History of Present Illness - General History Source: Patient Exam Limitations: No Limitations - History of Present Illness Initial Comments: 06/25/17 15:07 The patient is a 27 year old male, with no significant past medical history, who presents to the emergency room complaining of headache, nausea, vomiting, and chills. The patient felt normal this morning when he woke up. Around 10am, he injected heroin into the left arm. He notes that the headache, nausea, and vomiting started around 12:00pm, approximately 3 hours ago. His last episode of vomiting occurred in the waiting room. He notes that his right hand is swollen around the third knuckle, and denies any trauma to the hand or recent injury to the hand. He states that he doesn't inject into the hand and is unsure where the swelling came from. He reports that he has chronic lower back pain that is exacerbated by bending down and does not want to lay down secondary to the pain at this time. Denies chest pain, SOB. Denies lightheadedness, dizziness. Allergies: none reported Social Hx: IV drug use, marijuana use. <Joselin Shirley - Last Filed: 06/25/17 18:56> - General History Source: Patient Exam Limitations: No Limitations <Randi Mejias - Last Filed: 06/27/17 13:01> - General Chief Complaint: Pain Stated Complaint: SORE THROAT, BACK PAIN Time Seen by Provider: 06/25/17 14:12 Past History <Joselin Shirlye - Last Filed: 06/25/17 18:56> - Past Medical History Other medical history: NONE - Psycho/Social/Smoking Cessation Hx Anxiety: No Suicidal Ideation: No Smoking History: Never smoked Hx Alcohol Use: No Drug/Substance Use Hx: No Substance Use Type: None <Randi Mejias - Last Filed: 06/27/17 13:01> - Past Medical History Allergies/Adverse Reactions: Allergies Allergy/AdvReac Type Severity Reaction Status Date / Time No Known Allergies Allergy Verified 06/25/17 13:49 Home Medications: Ambulatory Orders NK [No Known Home Medication] 06/25/17 Review of Systems - Review of Systems Able to Perform ROS?: Yes Comments:: 06/25/17 15:07 GENERAL/CONSTITUTIONAL: +chills, weakness, headache. No: fever, loss of appetite. HEAD, EYES, EARS, NOSE AND THROAT: No: change in vision, ear pain, discharge, sore throat, throat swelling. CARDIOVASCULAR: No: chest pain, lightheadedness, palpitations, syncope RESPIRATORY: No: cough, shortness of breath, wheezing, hemoptysis, stridor. GASTROINTESTINAL: +nausea, vomiting. No: abdominal cramping, diarrhea, rectal bleeding, constipation. GENITOURINARY: No: dysuria, hematuria, frequency, urgency, flank pain. MUSCULOSKELETAL: +chronic lower back pain. No: neck pain SKIN: No: lesions, pallor, rash or easy bruising. NEUROLOGIC: No: vertigo, paresthesias, weakness ENDOCRINE: No: unexplained weight gain or loss HEMATOLOGIC/LYMPHATIC: No: anemia, easy bleeding, swelling nodes <Joselin Shirley - Last Filed: 06/25/17 18:56> *Physical Exam - Vital Signs Last Vital Signs Temp Pulse Resp BP Pulse Ox 99.5 F 113 H 20 126/71 100 06/25/17 13:46 06/25/17 13:46 06/25/17 13:46 06/25/17 13:46 06/25/17 13:46 - Physical Exam Comments: 06/25/17 15:07 GENERAL: The patient is in no acute distress. HEAD: Normal with no signs of trauma. EYES: PERRLA, EOMI, sclera anicteric, conjunctiva clear. ENT: Ears normal, nares patent, oropharynx clear without exudates. Moist mucous membranes. NECK: Normal range of motion, supple without lymphadenopathy, JVD, or masses. LUNGS: Breath sounds equal, clear to auscultation bilaterally. No wheezes, and no crackles. HEART: +tachycardic. Regular rhythm, normal S1 and S2 without murmur, rub or gallop. ABDOMEN: Soft, nontender, normoactive bowel sounds. No guarding, no rebound. EXTREMITIES: + right hand has erythema over the third MCP joint. Normal range of motion. No clubbing or cyanosis. NEUROLOGICAL: Cranial nerves II through XII grossly intact. Normal speech. No focal neurological deficits. MUSCULOSKELETAL: +right sided CVA tenderness, +midline lumbar tenderness. SKIN: Warm, Dry, normal turgor, no rashes or lesions noted. <Joselin Shirley - Last Filed: 06/25/17 18:56> - Vital Signs Last Vital Signs Temp Pulse Resp BP Pulse Ox 99.5 F 113 H 20 126/71 100 06/25/17 13:46 06/25/17 13:46 06/25/17 13:46 06/25/17 13:46 06/25/17 13:46 <Randi Mejias - Last Filed: 06/27/17 13:01> ED Treatment Course - LABORATORY CBC & Chemistry Diagram: 06/25/17 14:35 06/25/17 14:35 - ADDITIONAL ORDERS Additional order review: 06/25/17 14:35 RBC 4.45 MCV 88.4 MCHC 34.0 RDW 13.8 MPV 9.6 Neutrophils % 93.1 H Lymphocytes % 5.6 L Monocytes % 0.4 L Eosinophils % 0.6 Basophils % 0.3 - RADIOLOGY Radiograph Interpretation: 06/25/17 18:09 EXAM: CT of the abdomen and pelvis with IV contrast HISTORY:Transaminitis. Fever COMPARISON: None. FINDINGS:Serial transaxial images of the abdomen and pelvis are available following intravenous contrast agent. Sagittal and coronal reformatted imaging is available demonstrating mildly prominent markings of both lung bases of indeterminate age. No focal abnormality of the liver is seen. The gallbladder is normal. No dilatation of the biliary system is seen. The spleen is normal. There is moderate fluid distention of the stomach. The pancreas is normal. The adrenal glands are normal. The kidneys are normal. Neither collecting system appears dilated. The urinary bladder is distended and otherwise normal. No abnormality of the prostate gland is seen. There are no inflammatory changes of the colon seen. An appendix is not seen. Prior appendectomy is questioned. No inflammation of the small bowel is seen or bowel obstruction. There is no free air or free fluid. No significant adenopathy is seen. The vascular structures are unremarkable. No acute osseous abnormality is seen. IMPRESSION: No acute findings THIS DOCUMENT HAS BEEN ELECTRONICALLY SIGNED Jessee Bethea MD 06/25/2017 18:04 EST <Joselin Shirley - Last Filed: 06/25/17 18:56> - LABORATORY CBC & Chemistry Diagram: 06/26/17 06:15 06/26/17 06:15 <Randi Mejias - Last Filed: 06/27/17 13:01> Medical Decision Making - Medical Decision Making 06/25/17 14:16 A portion of this note was documented by scribe services under my direction. I have reviewed the details of the note, within reason, and agree with the documentation with the following case summary and management plan written by me. Nursing documentation reviewed and incorporated into medical decision making This 27-year-old male, history of IV drug use who presents to the ER with a complaint of headache, back pain, leg weakness, nausea, abdominal pain Pt states that he awoke this morning with no complaints approximately 3 hours ago, he developed all of the afore mentioned symptoms Did inject narcotics this morning several hours prior to these symptoms On exam: Pt appear ill reports headache and back pain Is unable to lay back in the bed due to pain Diffuse abdominal tenderness, no distention right hand erythematous lesion, no fluctuance palpated Differential is broad in this patient: bacteremia, endocarditis, intra- abdominal pathology Pt given IVF, Motrin, Reglan, Morphine 06/25/17 15:02 Laboratory Tests 06/25/17 14:35 WBC 10.3 H Hgb 13.4 Hct 39.3 Plt Count 208 Neutrophils % 93.1 H Lymphocytes % 5.6 L Monocytes % 0.4 L Eosinophils % 0.6 Basophils % 0.3 06/25/17 18:37 Transaminitis Fever Pt feels better BP low Will do Lactic Will bolus NS Will re assess Admit to hospitalist Empiric Abx Pt has right hand erythema Vancomycin given 06/25/17 19:00 06/27/17 12:58 06/27/17 13:00 <Randi Mejias - Last Filed: 06/27/17 13:01> *DC/Admit/Observation/Transfer - Attestations Scribe Attestion: 06/25/17 15:07 Documentation prepared by RENETTA Castañeda, acting as associate medical director for Randi Mejias MD. <Joselin Shirley - Last Filed: 06/25/17 18:56> - Discharge Dispostion Admit: Yes <Randi Mejias - Last Filed: 06/27/17 13:01> Diagnosis at time of Disposition: Fever Qualifiers: Fever type: due to other condition Qualified Code(s): R50.81 - Fever presenting with conditions classified elsewhere - Discharge Dispostion Disposition: AGAINST MEDICAL ADVICE Condition at time of disposition: Unchanged/Unknown
[2017-06-25 14:46] LABS: BASOPHIL 0.3 % (0-2.0); EOSINOPHIL 0.6 % (0-4.5); MCH 30.1 pg (25.7-33.7); MEAN CELL VOLUME 88.4 fl (80-96); MEAN PLT VOLUME 9.6 fl (7.5-11.1); NEUTROPHILS 93.1 % (42.8-82.8); PLATELET COUNT 208 K/MM3 (134-434); RDW 13.8 % (11.9-15.9); WHITE BLOOD COUNT 10.3 K/mm3 (4.0-10.0)
[2017-06-25] MEDS ORDERED: METOCLOPRAMIDE HCL INJECTION 10 MG/2 ML VIAL IVPB ONE (14:50)
[2017-06-25] MEDS ORDERED: morphine CARPU-JECT 4 MG/1 ML DISP.SYRIN IVPUSH ONE (14:51)
[2017-06-25] MEDS ORDERED: IBUPROFEN 800 MG/8 ML IJ IVPB ONE ×2 (14:54→15:53)
[2017-06-25 15:15] LABS: ALBUMIN 4.3 g/dl (3.4-5.0); ANION GAP 10 (8-16); BILIRUBIN,TOTAL 0.7 mg/dL (0.2-1.0); CALCIUM 8.9 mg/dL (8.5-10.1); CO2 29 mmol/L (21-32); CREATININE 1.3 mg/dL (0.7-1.3); GLUCOSE,RANDOM 99 mg/dL (74-106); SGOT/AST 138 U/L (15-37); SGPT/ALT 134 U/L (12-78)
[2017-06-25 15:16] LABS: ALK PHOS 126 U/L (45-117)
[2017-06-25 15:39] LABS: HIV 1 & 2 AB NEGATIVE; HIV 1 AGp24 NEGATIVE
[2017-06-25] MEDS ORDERED: morphine CARPU-JECT 4 MG/1 ML DISP.SYRIN ONE (15:52)
[2017-06-25] MEDS ORDERED: METOCLOPRAMIDE HCL INJECTION 10 MG/2 ML VIAL ONE (15:52)
[2017-06-25 19:33] LABS: URINE APPEARANCE CLEAR; URINE BILIRUBIN NEGATIVE (NEGATIVE); URINE BLOOD 1+ (NEGATIVE); URINE COLOR COLORLESS; URINE GLUCOSE (UA) NEGATIVE (NEGATIVE); URINE KETONE NEGATIVE (NEGATIVE); URINE LEUK ESTERASE NEGATIVE (NEGATIVE); URINE NITRITE NEGATIVE (NEGATIVE); URINE PROTEIN NEGATIVE (NEGATIVE); URINE UROBILINOGEN NEGATIVE mg/dL (0.2-1.0)
[2017-06-25 19:46] LABS: URINE RBC <1 /hpf (0-3); URINE WBC <1 /hpf (3-5)
--- NOTE | 2017-06-25 20:46 | PN ---
Teaching Attending Note Name of Resident: Ventura Villalta ATTENDING PHYSICIAN STATEMENT I saw and evaluated the patient. I reviewed the resident's note and discussed the case with the resident. I agree with the resident's findings and plan as documented. SUBJECTIVE: This is a 27 year old man with a history substance abuse who comes to the ER complaining of headache, nausea, vomiting, low back pain and chills. He had been at [facility] 06/19-06/24 for marijuana, cocaine and opioid dependence. He was detoxed with Methadone. He says he felt well at discharge yesterday and this morning when he awoke. He denies using any drugs since discharge, however in the ER he had previously admitted to injecting heroin into his left arm at 10 am today. His symptoms started about 2 hours later. In the ER, CT abd/pelvis was unremarkable. He has been treated with normal saline 2 L IV, ibuprofen 800 mg IV, morphine 4 mg IVP, and Reglan 10 mg IV, and he is feeling better. OBJECTIVE: Vital Signs Period Temp Pulse Resp BP Sys/Restrepo Pulse Ox Last 24 Hr 99.5 F 87-113 16-20 83-126/50-71 98-100 HEART: S1S2, RRR LUNGS: Clear ABDOMEN: Soft, non-tender, non-distended, normal BS EXTREMITIES: No edema. Small non-tender erythematous area over right 3rd MCP joint BACK: No CVA tenderness. No spinal or paraspinal tenderness. ASSESSMENT AND PLAN: This is a 27 year old man with a history substance abuse who presents to the ER with headache, nausea, vomiting, low back pain and chills that started one day after completing Methadone detox and 2 hours after injecting heroin. 1. Possible opioid withdrawal, possible viral syndrome - Continue IV fluid - Monitor temp - Follow-up blood cultures - Influenza A/B negative - HIV 1/2 Ab, HIV P24 Ag negative - Check acute hepatitis panel 2. Hepatic transaminitis - AST, ALT, alk phos were normal 06/20 - Monitor LFTs - RUQ US - Check acute hepatitis panel
--- NOTE | 2017-06-25 20:57 | HP ---
CHIEF COMPLAINT:fever headache pain PCP:none HISTORY OF PRESENT ILLNESS: 27M no PMH. past social hsitory of cocaine cannabis and opioid abuse which he uses by injection oxycodone presents to the ED with a 1 day history of nausea 1 episode of non bloody but bilious vomiting abdominal pain headache body pain ( mostly back) and states he had a fever but never measured a temperature and stated he felt hot and cold. He was recently discharged yesterday from [facility] after completing methadone detox program for opioid abuse. He denies chest pain or shorntess of breath. Denies high risk sexual behavior. Sexually active with his girlfriend and has unprotected sex. States he uses clean needles and does not share needles Denies diarrhea or constipation. Denies neurological symptoms. Patient sitting up in bed in no acute distress eating dinner during the interview. ER course was notable for: (1)morphine ABD CT (2)CXR (3)IVF labs Recent Travel:Denies PAST MEDICAL HISTORY:Denies PAST SURGICAL HISTORY:Denies Social History: Smoking:denies Alcohol:denies Drugs: cannabis cocaine and opioid abuse. IVDA (shoots up oxycodone pills.) Allergies No Known Allergies Allergy (Verified 06/25/17 13:49) HOME MEDICATIONS: Home Medications Medication Instructions Recorded NK [No Known Home Medication] 06/25/17 REVIEW OF SYSTEMS CONSTITUTIONAL: Absent: , generalized weakness, malaise, loss of appetite, weight change Present: fever, chills, diaphoresis HEENT: Absent: rhinorrhea, nasal congestion, throat pain, throat swelling, difficulty swallowing, mouth swelling, ear pain, eye pain, visual changes CARDIOVASCULAR: Absent: chest pain, syncope, palpitations, irregular heart rate, lightheadedness , peripheral edema RESPIRATORY: Absent: cough, shortness of breath, dyspnea with exertion, orthopnea, wheezing, stridor, hemoptysis GASTROINTESTINAL: Absent: abdominal pain, abdominal distension, , diarrhea, constipation, melena, hematochezia Present: nausea, vomiting GENITOURINARY: Absent: dysuria, frequency, urgency, hesitancy, hematuria, flank pain, genital pain MUSCULOSKELETAL: Absent: myalgia, arthralgia, joint swelling, , neck pain Present: back pain SKIN: Absent: rash, itching, pallor HEMATOLOGIC/IMMUNOLOGIC: Absent: easy bleeding, easy bruising, lymphadenopathy, frequent infections ENDOCRINE: Absent: unexplained weight gain, unexplained weight loss, heat intolerance, cold intolerance NEUROLOGIC: Absent: focal weakness or paresthesias, dizziness, unsteady gait, seizure, mental status changes, bladder or bowel incontinence Present: headache PSYCHIATRIC: Absent: anxiety, depression, suicidal or homicidal ideation, hallucinations. PHYSICAL EXAMINATION Vital Signs - 24 hr 06/25/17 06/25/17 06/25/17 13:46 16:46 18:15 Temperature 99.5 F Pulse Rate 113 H Pulse Rate [ 89 87 Radial] Respiratory 20 18 16 Rate Blood Pressure 126/71 Blood Pressure 89/54 83/50 [Right Arm] O2 Sat by Pulse 100 98 98 Oximetry (%) 06/25/17 18:44 Temperature Pulse Rate Pulse Rate [ Radial] Respiratory Rate Blood Pressure 83/50 Blood Pressure [Right Arm] O2 Sat by Pulse Oximetry (%) GENERAL: Awake, alert, and fully oriented, in no acute distress. HEAD: Normal with no signs of trauma. EARS, NOSE, THROAT:Moist mucous membranes. NECK: Normal range of motion, supple without lymphadenopathy, JVD, LUNGS: Breath sounds equal, clear to auscultation bilaterally. No wheezes, and no crackles. No accessory muscle use. HEART: Regular rate and rhythm, normal S1 and S2 without murmur, rub or gallop. ABDOMEN: Soft, nontender, not distended, normoactive bowel sounds, no guarding, no rebound, no masses. No hepatomegaly or splenomegaly. MUSCULOSKELETAL: Normal range of motion at all joints. No bony deformities or tenderness. No CVA tenderness. no back pain on palpation UPPER EXTREMITIES: 2+ pulses, warm, well-perfused. No cyanosis. No clubbing. No peripheral edema. LOWER EXTREMITIES: 2+ pulses, warm, well-perfused. No calf tenderness. No peripheral edema. NEUROLOGICAL: Cranial nerves II-XII intact. Normal speech. Laboratory Results - last 24 hr 06/25/17 06/25/17 06/25/17 14:35 14:35 15:00 WBC 10.3 H RBC 4.45 Hgb 13.4 Hct 39.3 MCV 88.4 MCH 30.1 MCHC 34.0 RDW 13.8 Plt Count 208 MPV 9.6 Neutrophils % 93.1 H Lymphocytes % 5.6 L Monocytes % 0.4 L Eosinophils % 0.6 Basophils % 0.3 Sodium 133 L Potassium 4.0 Chloride 94 L Carbon Dioxide 29 Anion Gap 10 BUN 17 Creatinine 1.3 Creat Clearance w eGFR > 60 Random Glucose 99 Lactic Acid Calcium 8.9 Total Bilirubin 0.7 AST 138 H ALT 134 H Alkaline Phosphatase 126 H Total Protein 8.0 Albumin 4.3 Serum , Qual Urine Color Urine Appearance Urine pH Urine Protein Urine Glucose (UA) Urine Ketones Urine Blood Urine Nitrite Urine Bilirubin Urine Urobilinogen Ur Leukocyte Esterase Urine RBC Urine WBC HIV 1&2 Antibody Screen Negative HIV P24 Antigen Negative 06/25/17 06/25/17 18:32 19:24 WBC RBC Hgb Hct MCV MCH MCHC RDW Plt Count MPV Neutrophils % Lymphocytes % Monocytes % Eosinophils % Basophils % Sodium Potassium Chloride Carbon Dioxide Anion Gap BUN Creatinine Creat Clearance w eGFR Random Glucose Lactic Acid 1.9 Calcium Total Bilirubin AST ALT Alkaline Phosphatase Total Protein Albumin Serum , Qual Negative Urine Color Colorless Urine Appearance Clear Urine pH 6.0 Urine Protein Negative Urine Glucose (UA) Negative Urine Ketones Negative Urine Blood 1+ H Urine Nitrite Negative Urine Bilirubin Negative Urine Urobilinogen Negative Ur Leukocyte Esterase Negative Urine RBC <1 Urine WBC <1 HIV 1&2 Antibody Screen HIV P24 Antigen CXR: CLear CT scan pending ASSESSMENT/PLAN: 27M with history of polysubstance abuse presents to the ED one day after completing his methadone detox with nausea vomiting subjective fevers chills and body pain. general malaise/abdominal pain/back pain/ headache: it could be the patient is experiencing opioid withdrawals as methadone is a long acting drug and it takes at least a day at time to notice withdrawals after last use. patient is sitting in bed in no acute distress with symptoms resolved after he received morphine for the pain which help go towards opioid withdrawlad patient may also have a viral syndrome as he was around many different patients in rehab HIV test negative send hepatitis panel trend CBC trned fever curve IVF regular diet supportive care treat symtpoms PRN pain control without using narcotics f/u CT scan UA negative f/u UCx and BCx will do echo and panculture if spikes fever transamintitis: hepatitis panel trend LFTs f/u liver ultrasound history of opioid abuse/polysubstance abuse: avoid narcotics counselled on importance of following up with outpatient treatment and joining narcotics anonymous fellowship FEN: NS @ 100ml/hr mild hyponatremia will monitor regular diet PPx: HSQ/SCDs no GI PPx indicated no PT consult indicated Case discussed with attending Dr. Allen Visit type - Emergency Visit Emergency Visit: Yes Care time: The patient presented to the Emergency Department on the above date and was hospitalized for further evaluation of their emergent condition. - New Patient This patient is new to me today: Yes Date on this admission: 06/25/17 - Critical Care Critical Care patient: No
[2017-06-25] MEDS ORDERED: IBUPROFEN 400 MG TABLET (FP) PO PRN (21:08)
[2017-06-25] MEDS ORDERED: VANCOMYCIN 1,000 MG in DEXTROSE 5%-WATER - 250 ML IVPB SCH (22:00)
[2017-06-25] MEDS: SODIUM CHLORIDE 1,000 ML IV SCH (22:15)
[2017-06-26 01:22] VITALS: BMI 22.4
[2017-06-26] MEDS ORDERED: HEPARIN NA (PORCINE) 5,000 UNITS/ML 1ML VIAL SQ SCH (06:00)
[2017-06-26 07:17] LABS: BASOPHIL 0.4 % (0-2.0); EOSINOPHIL 2.6 % (0-4.5); MCH 29.7 pg (25.7-33.7); MCHC 33.6 g/dl (32.0-35.9); MEAN CELL VOLUME 88.5 fl (80-96); MEAN PLT VOLUME 10.2 fl (7.5-11.1); PLATELET COUNT 177 K/MM3 (134-434); WHITE BLOOD COUNT 13.2 K/mm3 (4.0-10.0)
[2017-06-26 07:43] LABS: ALBUMIN 2.9 g/dl (3.4-5.0); ANION GAP 7 (8-16); BILIRUBIN,TOTAL 0.6 mg/dL (0.2-1.0); CALCIUM 8.3 mg/dL (8.5-10.1); CO2 29 mmol/L (21-32); CREATININE 1.1 mg/dL (0.7-1.3); GLUCOSE,RANDOM 108 mg/dL (74-106); MAGNESIUM 2.1 mg/dL (1.8-2.4); PHOSPHOROUS 3.6 mg/dL (2.5-4.9); SGOT/AST 68 U/L (15-37); SGPT/ALT 110 U/L (12-78)
[2017-06-26 07:44] LABS: ALK PHOS 107 U/L (45-117); TOT PROT 5.7 g/dl (6.4-8.2)
[2017-06-26] MEDS ORDERED: VANCOMYCIN 1,000 MG in DEXTROSE 5%-WATER - 250 ML IVPB SCH (10:00)
[2017-06-26] MEDS: SODIUM CHLORIDE 1,000 ML IV SCH (10:02)
[2017-06-26 11:07] VITALS: BP 116/57; PULSE 81; TEMP 98.4
--- NOTE | 2017-06-26 12:55 | DS ---
Physical Exam: SUBJECTIVE: eloped OBJECTIVE: patient eloped before being seen. Vital Signs Period Temp Pulse Resp BP Sys/Restrepo Pulse Ox Last 24 Hr 97.1 F-98.6 F 58-88 18-18 101-121/55-86 99-99 PHYSICAL EXAM LABS Laboratory Results - last 24 hr 06/25/17 06/26/17 06/26/17 19:24 06:15 06:15 WBC 13.2 H RBC 3.88 L Hgb 11.5 L D Hct 34.3 L MCV 88.5 MCH 29.7 MCHC 33.6 RDW 14.0 Plt Count 177 MPV 10.2 Neutrophils % 79.0 Lymphocytes % 12.9 D Monocytes % 5.1 D Eosinophils % 2.6 D Basophils % 0.4 Sodium Potassium Chloride Carbon Dioxide Anion Gap BUN Creatinine Creat Clearance w eGFR Random Glucose Calcium Phosphorus Magnesium Total Bilirubin AST ALT Alkaline Phosphatase Total Protein Albumin Lipase Cancelled Serum , Qual Negative Urine Color Colorless Urine Appearance Clear Urine pH 6.0 Ur Specific [place] <= 1.005 Urine Protein Negative Urine Glucose (UA) Negative Urine Ketones Negative Urine Blood 1+ H Urine Nitrite Negative Urine Bilirubin Negative Urine Urobilinogen Negative Ur Leukocyte Esterase Negative Urine RBC <1 Urine WBC <1 06/26/17 06:15 WBC RBC Hgb Hct MCV MCH MCHC RDW Plt Count MPV Neutrophils % Lymphocytes % Monocytes % Eosinophils % Basophils % Sodium 141 Potassium 5.3 H D Chloride 105 D Carbon Dioxide 29 Anion Gap 7 L BUN 12 D Creatinine 1.1 Creat Clearance w eGFR > 60 Random Glucose 108 H Calcium 8.3 L Phosphorus 3.6 Magnesium 2.1 Total Bilirubin 0.6 AST 68 H D ALT 110 H Alkaline Phosphatase 107 Total Protein 5.7 L D Albumin 2.9 L D Lipase 123 Serum , Qual Urine Color Urine Appearance Urine pH Ur Specific [place] Urine Protein Urine Glucose (UA) Urine Ketones Urine Blood Urine Nitrite Urine Bilirubin Urine Urobilinogen Ur Leukocyte Esterase Urine RBC Urine WBC HOSPITAL COURSE: Date of Admission:06/25/17 Date of Discharge: 06/26/17 Patient eloped before I examined him. Verbal report received from his nurse. No AMA forms were signed as pt left hospital after requesting his peripheral IV be removed. Minutes to complete discharge: 10 Discharge Summary Reason For Visit: FEVER Current Active Problems Fever (Acute) Condition: Unchanged/Unknown - Instructions Disposition: ELOPED - Home Medications Comprehensive Discharge Medication List: Ambulatory Orders NK [No Known Home Medication] 06/25/17 This patient is new to me today: Yes Date on this admission: 06/26/17 Emergency Visit: No Critical Care patient: No - Discharge Referral Referred to [facility] Med P.C.: No
== END 2017-06-26 13:07 | disposition left against medical advice (07) ==
LOC: EDSEX 13:44 → JER 13:44 → MERGE 19:19 → JERBED 19:19 → J5S 22:07
PROVIDERS: ADMIT Internal Medicine; ATTEND Nurse Practitioner Family
PROC: 3E033GC Introduction of Other Therapeutic Substance into Peripheral Vein, Percutaneous Approach (ICD-10-PCS; principal; 2017-06-25)
PROC: 3E0337Z Introduction of Electrolytic and Water Balance Substance into Peripheral Vein, Percutaneous Approach (ICD-10-PCS; 2017-06-25)
PROC: 3E033NZ Introduction of Analgesics, Hypnotics, Sedatives into Peripheral Vein, Percutaneous Approach (ICD-10-PCS; 2017-06-25)
DX: R50.81 Fever presenting with conditions classified elsewhere (principal); R74.0 Nonspecific elevation of levels of transaminase and lactic acid dehydrogenase [LDH]; F19.10 Other psychoactive substance abuse, uncomplicated
CPT/HCPCS: 36415; 71020-TC; 74177-TC; 76705-TC; 80053; 80074; 81003; 81015; 83605; 83690; 83735; 84100; 84703; 85025; 87040; 87086; 87389; 87804; 99285-25; G0378

== ENCOUNTER 2018-06-06 12:11 | Inpatient (IN) | payer OTHER ==
[2018-06-06 12:38] VITALS: BMI 23.6
[2018-06-06] MEDS ORDERED: IBUPROFEN 400 MG TABLET (FP) PO PRN (16:27)
[2018-06-06] MEDS ORDERED: MENTHOL/PHENOL 1 EACH UD MM PRN (16:27)
[2018-06-06] MEDS ORDERED: P-EPHED 60MG/TRIPROLIDI 2.5MG TABLET PO PRN (16:27)
[2018-06-06] MEDS ORDERED: LOPERAMIDE HCL 2 MG CAPSULE PO PRN (16:27)
[2018-06-06] MEDS ORDERED: MAG HYDROX/AL HYDROX/SIMETH 30 ML UNIT-DOSE CUP PO PRN (16:27)
[2018-06-06] MEDS ORDERED: ACETAMINOPHEN 325 MG TABLET (FP) PO PRN (16:27)
[2018-06-06] MEDS ORDERED: guaiFENesin/D-METHORPHAN HB 10 ML UNIT-DOSE CUPS PO PRN (16:27)
[2018-06-06] MEDS ORDERED: MAGNESIUM CITRATE 300 ML BOTTLE PO PRN (16:27)
[2018-06-06] MEDS ORDERED: MAGNESIUM HYDROX 2400MG/30ML ORAL SUSPENSION 30 ML CUP PO PRN (16:27)
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
[2018-06-06] MEDS ORDERED: METHADONE HCL 10 MG TABLET (FOR DETOX USE ONLY) PO ONE ×2 (17:45→23:00)
[2018-06-06] MEDS: diazePAM 5 MG TABLET PO PRN (19:52)
[2018-06-06 20:14] LABS: URINE APPEARANCE CLEAR; URINE BILIRUBIN NEGATIVE (<2.0 mg/dL); URINE COLOR STRAW; URINE GLUCOSE (UA) NEGATIVE (NEGATIVE); URINE KETONE TRACE (NEGATIVE); URINE LEUK ESTERASE NEGATIVE (NEGATIVE); URINE NITRITE NEGATIVE (NEGATIVE); URINE PROTEIN NEGATIVE (NEGATIVE); URINE UROBILINOGEN NEGATIVE mg/dL (0.2-1.0)
[2018-06-06] MEDS ORDERED: MELATONIN 5 MG TABLETS PO PRN (22:00)
[2018-06-06] MEDS: THIAMINE HCL 100 MG TABLET (FP) PO SCH (22:14)
[2018-06-06] MEDS: CEPHALEXIN MONOHYDRATE PO SCH (22:15)
[2018-06-07] MEDS: CEPHALEXIN MONOHYDRATE PO SCH (08:14)
[2018-06-07] MEDS ORDERED: METHADONE HCL 10 MG TABLET (FOR DETOX USE ONLY) PO ONE (10:00)
[2018-06-07] MEDS: CEPHALEXIN MONOHYDRATE 500 MG CAPSULE (UD) PO SCH ×3 (10:09→22:40)
[2018-06-07] MEDS: PRENATAL VITAMINS W/ FOLIC ACID TABLET (FP) PO SCH (10:09)
[2018-06-07] MEDS: diazePAM 5 MG TABLET PO PRN ×3 (10:14→22:41)
--- NOTE | 2018-06-07 10:36 | PN ---
BHS COWS - Scale Resting Pulse: 0= [place] 80 or Below Sweatin= Chills/Flushing Restless Observation: 3= Extraneous Movement Pupil Size: 2= Moderately Dilated Bone or Joint Aches: 1= Mild Discomfort Runny Nose/ Eye Tearin= None GI Upset > 30mins: 0= None Tremor Observation of Outstretched Hands: 1= Tremor [place], Not Seen Yawning Observation: 2= >3x During Session Anxiety or Irritability: 2=Irritable/Anxious Goose Flesh Skin: 0=Smooth Skin COWS Score: 12 BHS Progress Note (SOAP) Subjective: ANXIETY,HOT/COLD SWEATS,FATIGUE. Objective: 06/07/18 10:36 Vital Signs 06/07/18 06/07/18 06/07/18 03:30 05:55 06:30 Temperature 98.7 F Pulse Rate 59 L Respiratory 18 16 18 Rate Blood Pressure 97/68 Laboratory Tests 06/06/18 19:00 Urine Color Straw Urine Appearance Clear Urine pH 7.0 Ur Specific [place] 1.009 Urine Protein Negative Urine Glucose (UA) Negative Urine Ketones Trace H Urine Blood Negative Urine Nitrite Negative Urine Bilirubin Negative Urine Urobilinogen Negative Ur Leukocyte Esterase Negative OTHER LAB RESULTS PENDING Assessment: 06/07/18 10:36 WITHDRAWAL SX Plan: CONTINUE DETOX
[2018-06-07 10:56] LABS: HEMATOCRIT 33.3 % (35.4-49); HEMOGLOBIN 11.3 GM/dL (11.7-16.9); MCH 29.5 pg (25.7-33.7); MCHC 33.9 g/dl (32.0-35.9); MEAN PLT VOLUME 9.7 fl (7.5-11.1); PLATELET COUNT 256 K/MM3 (134-434); RBC 3.83 M/mm3 (4.00-5.60); RDW 13.2 % (11.9-15.9); WHITE BLOOD COUNT 6.1 K/mm3 (4.0-10.0)
[2018-06-07 11:34] LABS: CHLORIDE 101 mmol/L (98-107); POTASSIUM 4.1 mmol/L (3.5-5.1); SODIUM 139 mmol/L (136-145)
[2018-06-07 11:45] LABS: ALBUMIN 3.5 g/dl (3.4-5.0); ALK PHOS 74 U/L (45-117); ANION GAP 10 MMOL/L (8-16); BILIRUBIN,TOTAL 0.5 mg/dL (0.2-1.0); BLOOD UREA NITROGEN 12 mg/dL (7-18); CALCIUM 8.7 mg/dL (8.5-10.1); CO2 28 mmol/L (21-32); GLUCOSE,RANDOM 100 mg/dL (74-106); SGOT/AST 11 U/L (15-37); SGPT/ALT 20 U/L (12-78); TOT PROT 6.9 g/dl (6.4-8.2)
[2018-06-07] MEDS ORDERED: CEPHALEXIN MONOHYDRATE 500 MG CAPSULE (UD) PO SCH (14:00)
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
--- NOTE | 2018-06-07 20:20 | EKG ---
Test Reason : Blood Pressure : / mmHG Vent. Rate : 092 BPM Atrial Rate : 092 BPM P-R Int : 168 ms QRS Dur : 092 ms QT Int : 332 ms P-R-T Axes : 063 057 031 degrees QTc Int : 410 ms NORMAL SINUS RHYTHM NORMAL ECG WHEN COMPARED WITH ECG OF 17-AUG-2017 12:47, CRITERIA FOR SEPTAL INFARCT ARE NO LONGER PRESENT Confirmed by JOY FERRER MD ([id number]) on 06/07/2018 8:20:18 PM Referred By: Confirmed By:JOY FERRER MD
[2018-06-07] MEDS: BACITRACIN 0.9 GM PACKET TP SCH (22:39)
[2018-06-07] MEDS: THIAMINE HCL 100 MG TABLET (FP) PO SCH (22:42)
[2018-06-07] MEDS: ZOLPIDEM TARTRATE 10 MG TABLET (PARK CARE ONLY) PO PRN (22:57)
[2018-06-08] MEDS: CEPHALEXIN MONOHYDRATE 500 MG CAPSULE (UD) PO SCH ×3 (06:10→22:17)
[2018-06-08] MEDS ORDERED: METHADONE HCL 5 MG TABLET (FOR DETOX USE ONLY) PO ONE (10:00)
[2018-06-08] MEDS: BACITRACIN 0.9 GM PACKET TP SCH ×3 (10:26→22:19)
[2018-06-08] MEDS: PRENATAL VITAMINS W/ FOLIC ACID TABLET (FP) PO SCH (10:26)
[2018-06-08] MEDS: diazePAM 5 MG TABLET PO PRN ×2 (10:27→15:06)
--- NOTE | 2018-06-08 13:05 | PN ---
BHS COWS - Scale Resting Pulse: 0= [place] 80 or Below Sweatin= Streaming Sweat Restless Observation: 3= Extraneous Movement Pupil Size: 2= Moderately Dilated Bone or Joint Aches: 1= Mild Discomfort Runny Nose/ Eye Tearin= Nasal Congestion GI Upset > 30mins: 1= Stomach Cramp Tremor Observation of Outstretched Hands: 1= Tremor [place], Not Seen Yawning Observation: 1= 1-2x During Session Anxiety or Irritability: 2=Irritable/Anxious Goose Flesh Skin: 0=Smooth Skin COWS Score: 16 BHS Progress Note (SOAP) Subjective: ANXIETY,RESTLESSNESS,COLD SWEATS, MUSCLE ACHES, INTERMITTENT SLEEP. Objective: 06/08/18 13:01 Vital Signs 06/08/18 06/08/18 06:20 11:20 Temperature 97.4 F L 97.6 F Pulse Rate 62 72 Respiratory 18 18 Rate Blood Pressure 101/51 108/72 Laboratory Tests 06/06/18 06/07/18 06/07/18 19:00 06:00 07:16 WBC 6.1 RBC 3.83 L Hgb 11.3 L Hct 33.3 L MCV 87.0 MCH 29.5 MCHC 33.9 RDW 13.2 Plt Count 256 D MPV 9.7 Sodium Potassium Chloride Carbon Dioxide Anion Gap BUN Creatinine Creat Clearance w eGFR Random Glucose Calcium Total Bilirubin AST ALT Alkaline Phosphatase Total Protein Albumin Urine Color Straw Urine Appearance Clear Urine pH 7.0 Ur Specific [place] 1.009 Urine Protein Negative Urine Glucose (UA) Negative Urine Ketones Trace H Urine Blood Negative Urine Nitrite Negative Urine Bilirubin Negative Urine Urobilinogen Negative Ur Leukocyte Esterase Negative RPR Titer HIV 1&2 Antibody Screen Negative HIV P24 Antigen Negative 06/07/18 06/07/18 07:16 07:16 WBC RBC Hgb Hct MCV MCH MCHC RDW Plt Count MPV Sodium 139 Potassium 4.1 Chloride 101 Carbon Dioxide 28 Anion Gap 10 BUN 12 Creatinine 1.0 Creat Clearance w eGFR > 60 Random Glucose 100 D Calcium 8.7 Total Bilirubin 0.5 AST 11 L D ALT 20 Alkaline Phosphatase 74 Total Protein 6.9 Albumin 3.5 Urine Color Urine Appearance Urine pH Ur Specific [place] Urine Protein Urine Glucose (UA) Urine Ketones Urine Blood Urine Nitrite Urine Bilirubin Urine Urobilinogen Ur Leukocyte Esterase RPR Titer Nonreactive HIV 1&2 Antibody Screen HIV P24 Antigen Assessment: 06/08/18 13:02 WITHDRAWAL SX Plan: CONTINUE DETOX FLEXERIL DIRECTED INCREASE PO FLUIDS
[2018-06-08] MEDS ORDERED: CYCLOBENZAPRINE HCL 10 MG TABLET (FP) PO SCH (14:00)
[2018-06-08] MEDS: CYCLOBENZAPRINE HCL 10 MG TABLET (FP) PO PRN ×2 (15:02→22:17)
[2018-06-08] MEDS: ZOLPIDEM TARTRATE 10 MG TABLET (PARK CARE ONLY) PO PRN (22:17)
[2018-06-08] MEDS: THIAMINE HCL 100 MG TABLET (FP) PO SCH (22:17)
[2018-06-09] MEDS: CEPHALEXIN MONOHYDRATE 500 MG CAPSULE (UD) PO SCH ×3 (06:06→23:49)
[2018-06-09] MEDS ORDERED: METHADONE HCL 5 MG TABLET (FOR DETOX USE ONLY) PO ONE (10:00)
[2018-06-09] MEDS: PRENATAL VITAMINS W/ FOLIC ACID TABLET (FP) PO SCH (10:52)
[2018-06-09] MEDS: BACITRACIN 0.9 GM PACKET TP SCH ×2 (10:52→23:48)
[2018-06-09] MEDS: CYCLOBENZAPRINE HCL 10 MG TABLET (FP) PO PRN ×2 (10:55→13:44)
--- NOTE | 2018-06-09 12:27 | PN ---
[facility] Progress Note (SOAP) Subjective: ANXIETY,SWEATS,CHILLS,IRRITABILITY. Objective: 06/09/18 12:26 Vital Signs 06/09/18 09:17 Temperature 98.1 F Pulse Rate 67 Respiratory 18 Rate Blood Pressure 87/53 Laboratory Tests 06/06/18 06/07/18 06/07/18 19:00 06:00 07:16 WBC 6.1 RBC 3.83 L Hgb 11.3 L Hct 33.3 L MCV 87.0 MCH 29.5 MCHC 33.9 RDW 13.2 Plt Count 256 D MPV 9.7 Sodium Potassium Chloride Carbon Dioxide Anion Gap BUN Creatinine Creat Clearance w eGFR Random Glucose Calcium Total Bilirubin AST ALT Alkaline Phosphatase Total Protein Albumin Urine Color Straw Urine Appearance Clear Urine pH 7.0 Ur Specific [place] 1.009 Urine Protein Negative Urine Glucose (UA) Negative Urine Ketones Trace H Urine Blood Negative Urine Nitrite Negative Urine Bilirubin Negative Urine Urobilinogen Negative Ur Leukocyte Esterase Negative RPR Titer HIV 1&2 Antibody Screen Negative HIV P24 Antigen Negative 06/07/18 06/07/18 07:16 07:16 WBC RBC Hgb Hct MCV MCH MCHC RDW Plt Count MPV Sodium 139 Potassium 4.1 Chloride 101 Carbon Dioxide 28 Anion Gap 10 BUN 12 Creatinine 1.0 Creat Clearance w eGFR > 60 Random Glucose 100 D Calcium 8.7 Total Bilirubin 0.5 AST 11 L D ALT 20 Alkaline Phosphatase 74 Total Protein 6.9 Albumin 3.5 Urine Color Urine Appearance Urine pH Ur Specific [place] Urine Protein Urine Glucose (UA) Urine Ketones Urine Blood Urine Nitrite Urine Bilirubin Urine Urobilinogen Ur Leukocyte Esterase RPR Titer Nonreactive HIV 1&2 Antibody Screen HIV P24 Antigen Assessment: 06/09/18 12:26 WITHDRAWAL SX Plan: CONTINUE DETOX
[2018-06-09] MEDS: diazePAM 5 MG TABLET PO PRN (13:44)
[2018-06-09] MEDS: THIAMINE HCL 100 MG TABLET (FP) PO SCH (23:49)
[2018-06-10] MEDS: CEPHALEXIN MONOHYDRATE 500 MG CAPSULE (UD) PO SCH (08:20)
[2018-06-10 09:44] VITALS: BP 128/84; PULSE 74; TEMP 97.9
[2018-06-10] MEDS ORDERED: METHADONE HCL 10 MG TABLET (FOR DETOX USE ONLY) PO ONE (10:00)
[2018-06-10] MEDS: BACITRACIN 0.9 GM PACKET TP SCH (10:45)
[2018-06-10] MEDS: PRENATAL VITAMINS W/ FOLIC ACID TABLET (FP) PO SCH (10:45)
[2018-06-10] MEDS: CYCLOBENZAPRINE HCL 10 MG TABLET (FP) PO PRN (10:48)
--- NOTE | 2018-06-10 20:43 | PN ---
[facility] Progress Note (SOAP) Subjective: Patient denies current Detox symptoms and reports that he feels well overall. Objective: PATIENT A & O X 3, OBSERVED AMBULATING ON UNIT. NO ACUTE DISTRESS. 06/10/18 20:42 Vital Signs Temperature 97.9 F 06/10/18 09:43 Pulse Rate 74 06/10/18 09:43 Respiratory Rate 18 06/10/18 09:43 Blood Pressure 128/84 06/10/18 09:43 O2 Sat by Pulse Oximetry (%) Laboratory Tests 06/06/18 06/07/18 06/07/18 19:00 06:00 07:16 WBC 6.1 RBC 3.83 L Hgb 11.3 L Hct 33.3 L MCV 87.0 MCH 29.5 MCHC 33.9 RDW 13.2 Plt Count 256 D MPV 9.7 Sodium Potassium Chloride Carbon Dioxide Anion Gap BUN Creatinine Creat Clearance w eGFR Random Glucose Calcium Total Bilirubin AST ALT Alkaline Phosphatase Total Protein Albumin Urine Color Straw Urine Appearance Clear Urine pH 7.0 Ur Specific [place] 1.009 Urine Protein Negative Urine Glucose (UA) Negative Urine Ketones Trace H Urine Blood Negative Urine Nitrite Negative Urine Bilirubin Negative Urine Urobilinogen Negative Ur Leukocyte Esterase Negative RPR Titer HIV 1&2 Antibody Screen Negative HIV P24 Antigen Negative 06/07/18 06/07/18 07:16 07:16 WBC RBC Hgb Hct MCV MCH MCHC RDW Plt Count MPV Sodium 139 Potassium 4.1 Chloride 101 Carbon Dioxide 28 Anion Gap 10 BUN 12 Creatinine 1.0 Creat Clearance w eGFR > 60 Random Glucose 100 D Calcium 8.7 Total Bilirubin 0.5 AST 11 L D ALT 20 Alkaline Phosphatase 74 Total Protein 6.9 Albumin 3.5 Urine Color Urine Appearance Urine pH Ur Specific [place] Urine Protein Urine Glucose (UA) Urine Ketones Urine Blood Urine Nitrite Urine Bilirubin Urine Urobilinogen Ur Leukocyte Esterase RPR Titer Nonreactive HIV 1&2 Antibody Screen HIV P24 Antigen LABS NOTED. Assessment: 06/10/18 20:42 COMPLETION OF DETOX REGIMEN. 06/10/18 20:42 Plan: PATIENT SCHEDULED FOR DISCHARGE FROM DETOX UNIT TODAY.
--- NOTE | 2018-06-10 20:48 | DS ---
[facility] Detox Discharge Summary Admission Date: 06/06/18 Discharge Date: 06/10/18 - History Present History: Cannabis Dependence, Cocaine Dependence, Opioid Dependence Additional Comments: PATIENT GOING TO [facility] FOR AFTERCARE. PATIENT ADVISED TO COMPLETE FULL COURSE OF TWO ANTIBIOTICS THAT HE STARTED PRIOR (AND CONTINUED DURING) DETOX AFTER DISCHARGE. PATIENT WAS DISCHARGED FROM DETOX UNIT IN STABLE MEDICAL CONDITION. Pertinent Past History: History of Depression, Weight Loss. - Physical Exam Results Vital Signs: Vital Signs Temperature 97.9 F 06/10/18 09:43 Pulse Rate 74 06/10/18 09:43 Respiratory Rate 18 06/10/18 09:43 Blood Pressure 128/84 06/10/18 09:43 O2 Sat by Pulse Oximetry (%) Pertinent Admission Physical Exam Findings: WITHDRAWAL SYMPTOMS. Laboratory Tests 06/06/18 06/07/18 06/07/18 19:00 06:00 07:16 WBC 6.1 RBC 3.83 L Hgb 11.3 L Hct 33.3 L MCV 87.0 MCH 29.5 MCHC 33.9 RDW 13.2 Plt Count 256 D MPV 9.7 Sodium Potassium Chloride Carbon Dioxide Anion Gap BUN Creatinine Creat Clearance w eGFR Random Glucose Calcium Total Bilirubin AST ALT Alkaline Phosphatase Total Protein Albumin Urine Color Straw Urine Appearance Clear Urine pH 7.0 Ur Specific [place] 1.009 Urine Protein Negative Urine Glucose (UA) Negative Urine Ketones Trace H Urine Blood Negative Urine Nitrite Negative Urine Bilirubin Negative Urine Urobilinogen Negative Ur Leukocyte Esterase Negative RPR Titer HIV 1&2 Antibody Screen Negative HIV P24 Antigen Negative 06/07/18 06/07/18 07:16 07:16 WBC RBC Hgb Hct MCV MCH MCHC RDW Plt Count MPV Sodium 139 Potassium 4.1 Chloride 101 Carbon Dioxide 28 Anion Gap 10 BUN 12 Creatinine 1.0 Creat Clearance w eGFR > 60 Random Glucose 100 D Calcium 8.7 Total Bilirubin 0.5 AST 11 L D ALT 20 Alkaline Phosphatase 74 Total Protein 6.9 Albumin 3.5 Urine Color Urine Appearance Urine pH Ur Specific [place] Urine Protein Urine Glucose (UA) Urine Ketones Urine Blood Urine Nitrite Urine Bilirubin Urine Urobilinogen Ur Leukocyte Esterase RPR Titer Nonreactive HIV 1&2 Antibody Screen HIV P24 Antigen LABS NOTED. - Treatment Hospital Course: Detox Protocol Followed, Detoxed Safely, Responded well, Discharged Condition Good Patient has Accepted a Rehab Referral to: PATIENT GOING TO [facility] FOR AFTERCARE. - Medication Discharge Medications: Ambulatory Orders Cephalexin Monohydrate [Keflex -] 500 mg PO Q8H 06/06/18 Ibuprofen [Motrin -] 600 mg PO Q6H PRN 06/06/18 Sulfamethoxazole/Trimethoprim [Bactrim Ds -] 1 tab PO BID 06/06/18 - Diagnosis (1) Cannabis dependence Status: Acute (2) Cocaine dependence with withdrawal Status: Acute (3) Insomnia Status: Acute Qualifiers: Insomnia type: unspecified Qualified Code(s): G47.00 - Insomnia, unspecified (4) Opioid dependence with withdrawal Status: Acute (5) Weight loss Status: Acute (6) Depression Status: Suspected Qualifiers: Depression Type: dysthymia Qualified Code(s): F34.1 - Dysthymic disorder - AMA Did Patient Leave Against Medical Advice: No
[2018-06-11] MEDS ORDERED: METHADONE HCL 5 MG TABLET (FOR DETOX USE ONLY) PO ONE (06:00)
== END 2018-06-10 12:14 | disposition home or self-care (01) | DRG 773 ==
LOC: YASAS 12:11 → Y3N 17:18
PROVIDERS: ADMIT Surgery; ATTEND Surgery
PROC: HZ2ZZZZ Detoxification Services for Substance Abuse Treatment (ICD-10-PCS; principal; 2018-06-06)
DX: F11.23 Opioid dependence with withdrawal (principal); F14.20 Cocaine dependence, uncomplicated; F12.20 Cannabis dependence, uncomplicated; F34.1 Dysthymic disorder; G47.00 Insomnia, unspecified; Z87.898 Personal history of other specified conditions
CPT/HCPCS: 36415; 80053; 81003; 85027; 86593; 87389; 93005; 93010